=== PATIENT | female | born 1955 | race Caucasian/White ===

== ENCOUNTER → 2023-01-07 09:33 | Outpatient (CLI) | payer MEDICARE, MEDICAID, SELFPAY ==
--- NOTE | 2023-01-07 | CA_ITS ---
APPROVED REPORT EXAM: Comprehensive 2D, Doppler, and color-flow Echocardiogram Gaming Dealer: Sally Reyez, RT(R) Ht: 5 ft 3 in Wt: 190lbs BSA: 1.89 BP: 142/84 mmHg Indications: PSVT, memory lapse, amnesia, SOB 2D Dimensions LVOT 1.87 cm (M/F) 1.5-2.5 LVEF (Murray's) 63.90 % F: 54 - 74 LV Volume 62.00 mL F: 46 - 106 LV Volume Index 32.80 mL/m2 F: 29 - 61 M-Mode Dimensions RVDd 3.06 cm (0.9-2.6) LA Diam 3.43 cm (1.9-4.0) LVDd 3.86 cm (3.5-5.7) Ao Diam 2.38 cm (2.0-3.7) LVDs 2.58 cm (3.5-5.7) IVSd 0.85 cm (0.6-1.1) PWd 0.93 cm (0.6-1.1) EF (Teich) 62.50% FS 33.20% EDV (Teich) 64.30 mL ESV (Teich) 24.10 mL LV Diastology E Decel Time 250.00 (160-240 msec) E/A Ratio 0.88 MED E' 6.60 (< 7 cm/sec) E'/MED E' Ratio 12.76 (>14) LAT E' 7.30 (<10 cm/sec) E/LAT E' Ratio 11.53 (>14) Mitral Valve MV A Velocity 96.00 (40-130 cm/s) E/A Ratio 0.88 MV Decel. Time 250.00 (160-240 ms) Left Ventricle Left atrium is normal size, left ventricle is normal size, estimated ejection fraction 55% with no regional wall motion abnormality. Diastolic parameters are inconclusive. Right Ventricle Right atrium and right ventricle are mildly enlarged with normal contractility. Aortic Valve Aortic valve is minimally thickened and calcified without aortic stenosis aortic insufficiency. Mitral Valve Mitral valve is grossly normal, there is trace mitral regurgitation. Tricuspid Valve Tricuspid grossly normal, there is trace tricuspid regurgitation, tricuspid regurgitation jet plus is inadequate for calculation of the right ventricular systolic pressure. Pulmonic Valve Pulmonic valve is poorly visualized. Great Vessels Aortic root is normal size. Inferior vena cava is normal size with normal inspiratory collapse. Pericardium No significant pericardial effusion noted. Conclusion 1. Normal left ventricular size, estimated ejection fraction 55% with no regional wall motion abnormality, diastolic parameters are inconclusive. 2. Mildly enlarged right ventricle with normal contractility. 3. Trace mitral and tricuspid regurgitation. 4. No significant pericardial effusion noted. 5. Inferior vena cava is normal size with normal inspiratory collapse. Electronically signed by : Jasper Mao MD 01/08/2023 10:59:40
--- NOTE | 2023-01-07 | CA_ITS ---
FINAL REPORT TECHNIQUE: Real-time imaging was performed of the extracranial carotid arteries in transverse and longitudinal planes, with color duplex evaluation of blood flow velocity. Spectral analysis was performed. The cervical vertebral arteries were also examined. CLINICAL HISTORY: .near syncope, htn COMPARISON: None FINDINGS: NASCET technique is utilized for stenosis evaluation. Right carotid system (centimeters/second): CCA: 109 ICA: 88 ECA: 133 Vertebral artery: Antegrade ICA/CCA ratio: 1.0 Mild plaque is identified at the right carotid bulb. Left carotid system (centimeters/second): CCA: 109 ICA: 138 ECA: 165 Vertebral artery: Antegrade ICA/CCA ratio: 1.26 Mild plaque is identified at the proximal left carotid bulb. IMPRESSION: <50% right ICA stenosis. <50% left ICA stenosis. Reviewed, Interpreted and Dictated by Malathi Dubois MD Transcribed by Candida Barcenas Authenticated and [facility]
== END ==
PROVIDERS: PCP Internal Medicine; Visit Provider Internal Medicine
DX: G45.4 Transient global amnesia (principal); I47.1 Supraventricular tachycardia
CPT/HCPCS: 93225; 93226; 93306; 93880

== ENCOUNTER 2023-01-15 17:05 | Observation (INO) | payer MEDICARE, MEDICAID, SELFPAY ==
[2023-01-15] VITALS (9 sets, daily range): BP systolic 110–125; BP diastolic 57–85; PULSE 79–96; RESP 17–20; TEMP 36.4–36.6; O2SAT 96–100; BMI 32.0; BMI 31.1
--- NOTE | 2023-01-15 16:41 | PC.NURSE ---
CHRIS OVERTON at
--- NOTE | 2023-01-15 16:42 | CT_ITS ---
PROCEDURE INFORMATION: Exam: CT Head Without Contrast Exam date and time: 01/15/2023 4:47 PM Age: 67 years old Clinical indication: Stroke-like symptoms; Altered mental status/memory loss; Additional info: AMS TECHNIQUE: Imaging protocol: Computed tomography of the head without contrast. Radiation optimization: All CT scans at this facility use at least one of these dose optimization techniques: automated exposure control; mA and/or kV adjustment per patient size (includes targeted exams where dose is matched to clinical indication); or iterative reconstruction. Other technique: STROKE PROTOCOL was implemented. REPORTING DATA: Count of CT and Cardiac NM exams in prior 12 months: This patient has received [address] and 0 known cardiac nuclear medicine studies in the 12 months prior to the current study. COMPARISON: US CA CAROTID DUPLEX BI 01/07/2023 9:42 AM FINDINGS: Brain: Normal. No hemorrhage. Unremarkable white matter. No mass effect. Cerebral ventricles: No ventriculomegaly. Paranasal sinuses: Visualized sinuses are unremarkable. No fluid levels. Mastoid air cells: Visualized mastoid air cells are well aerated. Bones/joints: Unremarkable. No acute fracture. Soft tissues: Unremarkable. IMPRESSION: No acute intracranial abnormality. ASSESSMENT: ASPECTS ([facility]osi Stroke Program Early CT Score) is 10.
--- NOTE | 2023-01-15 16:43 | CT_ITS ---
PROCEDURE INFORMATION: Exam: CT Cervical Spine Without Contrast Exam date and time: 01/15/2023 4:50 PM Age: 67 years old Clinical indication: Weakness; Additional info: AMS. Fall TECHNIQUE: Imaging protocol: Computed tomography of the cervical spine without contrast. Radiation optimization: All CT scans at this facility use at least one of these dose optimization techniques: automated exposure control; mA and/or kV adjustment per patient size (includes targeted exams where dose is matched to clinical indication); or iterative reconstruction. REPORTING DATA: Count of CT and Cardiac NM exams in prior 12 months: This patient has received [address] and 0 known cardiac nuclear medicine studies in the 12 months prior to the current study. COMPARISON: US CA CAROTID DUPLEX BI 01/07/2023 9:42 AM FINDINGS: Bones/joints: No acute fracture. Normal alignment. Mild disc space narrowing at C3-C4, C4-C5 and C7-T1. Moderate to severe disc space narrowing at C5-C6 and C6-C7 with C6-C7 vacuum disc. Multilevel endplate osteophytes, largest at C5-C6 and C6-C7. No significant disc bulge or herniation. No severe spinal canal stenosis. Multilevel facet arthrosis. Mild left-sided bony foraminal stenosis at C3-C4. Mild right-sided bony foraminal stenosis at C4-C5. Mild bilateral bony foraminal stenosis at C5-C6. Moderate left-sided and mild right-sided bony foraminal stenosis at C6-C7. Lungs: Lung apices are normal. Soft tissues: Unremarkable. IMPRESSION: No acute findings.
--- NOTE | 2023-01-15 16:44 | PC.NURSE ---
Pt to CT via stretcher
--- NOTE | 2023-01-15 16:47 | PC.NURSE ---
called radiology @ 16:[address] scan
--- NOTE | 2023-01-15 16:54 | PC.NURSE ---
Tiffanie Saldana neighbor per [facility]
--- NOTE | 2023-01-15 16:59 | ECG_ITS ---
APPROVED REPORT Exam: Resting ECG HR:78 bpm ECG Measurements Heart Rate 78 AXES WV 188 P 59 QRSd 87 QRS 38 QT 354 T 36 QTc 387 Conclusion SINUS RHYTHM LOW QRS VOLTAGE IN PRECORDIAL LEADS [QRS DEFLECTION < 1.0 mV IN CHEST LEADS] BORDERLINE ECG UNCONFIRMED REPORT Electronically signed by : Blake Hatch MD 01/16/2023 20:01:09
--- NOTE | 2023-01-15 17:01 | XR_ITS ---
PROCEDURE INFORMATION: Exam: XR Chest Exam date and time: 01/15/2023 5:22 PM Age: 67 years old Clinical indication: Other: AMS TECHNIQUE: Imaging protocol: Radiologic exam of the chest. Views: 1 view. COMPARISON: CT CERVICAL SPINE WO CON 01/15/2023 4:50 PM FINDINGS: Lungs: Unremarkable. No consolidation. Pleural spaces: Unremarkable. No pleural effusion. No pneumothorax. Heart/Mediastinum: Unremarkable. No cardiomegaly. Bones/joints: Unremarkable. IMPRESSION: No acute findings.
--- NOTE | 2023-01-15 17:03 | PC.NURSE ---
pt returned from CT via stretcher. UA and EKG obtained.
[2023-01-15 17:04] LABS: Microscopic, Urine URINE MICROSCOPIC (MICROSCOPIC)
--- NOTE | 2023-01-15 17:04 | HMH.EDGENADL ---
Discharge Plan Disposition Patient Disposition: Admitted as Observation Condition: Fair Clinical Impressions Clinical Impression: Expressive aphasia Discharge ED Provider: Francis De La Fuente Adult HPI General Chief complaint: Altered Mental Status Stated complaint: AMS Time Seen by Provider: 01/15/23 16:40 Mode of Arrival: EMS Source of Information: Patient and EMS Limitations: No Limitations Description of Symptoms (Recalled from ER Triage Doc. by RN): per EMS they received a call from the patient's neighbor stating she received a call from the patient stating to call the ambulance, she had fallen out of bed and hit her head, neighbor states she received call around 3:30pm but hasn't seen her or spoken with her in a week, neighbor states she has noticed increased confusion since October but this is defiantly out of her norm, pt lives at home alone, pt able to answer some questions appropriately but unable to give us any medical history or if she is allergic to anything, states her head hurts, no deficits noted History of Present Illness HPI narrative: The patient is brought in by ambulance. Limited history available. History is obtained from nursing staff in the emergency department who received report from ambulance. Reportedly the patient spoke with her neighbor by phone and told her that she had fallen out of bed. The patient currently just complains of headache, she thinks she might of fallen out of bed. She is having difficulty with speech and is unable to give any further history herself. Per nursing staff, the patient's neighbor reported increased confusion since late last year, but states she is much worse now. Patient lives alone. Neighbor does not see her often, reportedly last seen normal a week ago. Related Data Home Medications Medication Instructions Recorded Confirmed Unobtainable 01/15/23 01/15/23 Allergies Allergy/AdvReac Type Severity Reaction Status Date / Time Unable to Assess Allergy Verified 01/15/23 16:55 [facility] Disclaimer: The information contained in this section may have been updated after the patient was seen, as this information can be updated by other users. Social History Smoking Status: Unknown if ever smoked ROS Obtained: Yes unobtainable due to mental status Physical Exam General General appearance: alert and anxious Comment: Follows commands, answers a few simple questions. She tells me her name. She is word searching and cannot answer where she is or time/date. Head Head exam: atraumatic and normocephalic Eye Eye exam: Present normal appearance, PERRL and EOMI ENT ENT exam: Present mucous membranes moist Neck Neck exam: Present normal inspection, full ROM and trachea midline Chest Chest inspection: Present normal inspection and symmetric chest wall rise Respiratory Respiratory exam: Present normal lung sounds bilaterally; Absent respiratory distress Cardiovascular Cardiovascular exam: Present regular rate and normal rhythm Abdominal Exam Abdominal exam: Present soft; Absent distention, tenderness or guarding Extremities Exam Extremities exam: Present normal inspection; Absent edema Neurological Exam Neurological exam: Present alert and CN II-XII intact; Absent motor sensory deficit Expanded Neurological Exam Comment: Follows commands, moves all 4 extremities. No drift of any extremities. No facial asymmetry. Psychiatric Psychiatric exam: Present anxious Skin Skin exam: Present warm and dry Medical Decision Making Sami Inquiry Pt receiving controlled substance: Yes Sami was queried for this patient: Yes Risks and benefits of using a controlled substance: were not discussed with pt by me Vital Signs: 01/15/23 16:44 01/15/23 16:53 01/15/23 17:00 Temperature 97.6 F Temperature Source Oral Pulse Rate 80 79 Pulse Rate [Right Radial] 82 Respiratory Rate 20 Blood Pressure Blood Pressure [Right Arm] 1
[2023-01-15 17:12] LABS: Basophils # 0.1 K/mm3 (0-0.2); Basophils % 1.5 % (0.1-2.0); Eosinophils # 0.2 K/mm3 (0.0-0.4); Eosinophils % 2.4 % (0.1-12.0); Hematocrit 42.7 % (37.0-47.0); Hemoglobin 14.3 g/dL (12.2-16.2); Lymphocytes # 2.8 K/mm3 (0.7-4.5); Lymphocytes % 35.9 % (10-50); Mean Corpuscular HGB Conc 33.4 g/dL (31.8-35.4); Mean Corpuscular Hemoglobin 30.5 pg (27.0-31.2); Mean Corpuscular Volume 91.4 fl (81-99); Mean Platelet Volume 7.9 fl (7.4-10.4); Monocytes # 0.5 K/mm3 (0.1-1.0); Monocytes % 6.2 % (1.7-9.3); Neutrophils # 4.2 K/mm3 (1.8-7.8); Neutrophils % 53.9 % (37.0-80.0); Platelet Count 381 K/mm3 (142-424); Red Blood Count 4.67 M/mm3 (4.20-5.40); Red Cell Distribution Width 13.4 % (11.5-17.5); White Blood Count 7.7 K/mm3 (4.8-10.8)
[2023-01-15 17:15] LABS: Appearance,Urine CLEAR (Clear); Bilirubin,Urine Negative (Negative); Blood, Urine Negative (Negative); Color,Urine YELLOW (Yellow); Glucose,Urine (UA) Negative (Negative); Ketones,Urine Negative (Negative); Leukocyte Esterase,Urine 1+ (Negative); Nitrate,Urine Negative (Negative); Protein,Urine Negative (Negative); Specific Gravity, Urine 1.015 (1.005-1.030); Urobilinogen,Urine 0.2 EU/dl (0.2)
[2023-01-15 17:19] LABS: Coronavirus 19, PCR Not Detected (NotDetected); Influenza A, PCR Not Detected (NotDetected); Influenza B, PCR Not Detected (NotDetected)
[2023-01-15 17:19] LABS: Alanine Aminotransferase 29 U/L (12-78); Albumin Level 4.7 g/dl (3.5-5.0); Albumin/Globulin Ratio 1.4 (1.1-1.8); Alkaline Phosphatase 102 U/L (38-126); Anion Gap 8.5 mEq/L (5-15); Aspartate Amino Transferase 37 U/L (14-36); Bilirubin,Total 0.8 mg/dl (0.2-1.3); Blood Urea Nitrogen 24 mg/dl (7-17); Calcium 10.1 mg/dl (8.4-10.2); Carbon Dioxide 26 mmol/L (22.0-30.0); Chloride 108 mmol/L (98-107); Creatinine Clearance Estimated 69 mL/min (50-200); Estimated Glomerular Filt Rate 63 ml/min (>60); GFR (African American) 76 ML/MIN (>60); Globulin 3.4 g/dL (1.3-3.2); Glucose 99 mg/dl (74-100); Potassium 3.5 mmoL/L (3.5-5.1); Sodium 139 mmol/L (136-145); Total Protein,Serum 8.1 g/dl (6.3-8.2)
[2023-01-15 17:21] LABS: Ethyl Alcohol < 10 mg/dl (0-10)
[2023-01-15 17:33] LABS: Amphetamine/Metha Screen,Urine Negative ng/ml (<1000); Benzodiazepines Screen,Urine Positive ng/ml (<200)
[2023-01-15 17:34] LABS: Barbiturates Screen,Urine Negative ng/ml (<200)
[2023-01-15 17:36] LABS: Cannabinoid Screen,Urine Negative ng/ml (<50); Troponin I < 0.01 ng/ml (0.00-0.034)
[2023-01-15 17:37] LABS: Cocaine Screen,Urine Negative ng/ml (<300); Methadone Screen,Urine Negative ng/ml (<300); T4 (Thyroxine) 8.2 ug/dl (5.53-11.0)
[2023-01-15 17:38] LABS: Opiate Screen,Urine Negative ng/ml (<300)
[2023-01-15 17:39] LABS: Phencyclidine Screen,Urine Negative ng/ml (<25)
[2023-01-15 17:51] LABS: Thyroid Stimulating Hormone 5.91 uIU/mL (0.465-4.68)
[2023-01-15 18:00] LABS: Free Thyroxine Index 2.6 ug/dL (5.93-13.13); Triiodothryronine (T3) Uptake 32 % (23.5-40.5)
--- NOTE | 2023-01-15 18:08 | PC.NURSE ---
PROVIDED PT WITH WARM BLANKET. BED ALRAM IN PLACE. BED IN LOWEST POSITION. CALL LIGHT WITHIN REACH.
[2023-01-15 18:19] LABS: Bacteria,Urine Trace /lpf
[2023-01-15 18:20] LABS: Ammonia 10 umol/L (9-30)
--- NOTE | 2023-01-15 18:50 | PC.NURSE ---
ER AT BEDSIDE
--- NOTE | 2023-01-15 19:11 | PC.NURSE ---
GAVE REPORT TO INSIDE SALES PERSON RN.
--- NOTE | 2023-01-15 19:48 | PC.NURSE ---
speaking with hospitalist for admission
--- NOTE | 2023-01-15 19:54 | PC.NURSE ---
Called underground supervisor for bed assignment
--- NOTE | 2023-01-15 20:00 | PC.NURSE ---
Pt assigned to room 207 at this time
--- NOTE | 2023-01-15 20:36 | PC.NURSE ---
called pt's next of Kin, Olivia Perera [phone], however unable to leave a message
--- NOTE | 2023-01-15 21:08 | EXP.HP ---
History of Present Illness *Admission Date: 01/15/23 *Reason for visit:: Confusion *History of present illness: Ms. Lovett is a 67-year-old female who presented to [facility] due to a call from a neighbor that reported that the patient stated that she had fallen and hit her head. The neighbor reports that the patient lives alone and has appeared more confused since 09/2022. Per neighbor the patient has a history of Schizophrenia. In the ER there was a concern for expressive aphasia. The patient underwent a CT of the head that showed no acute intracranial abnormalities and CT of the cervical spine that showed no acute fractures or dislocations. US was positive for Benzodiazepines. The patient's medication history was checked and she was last prescribed Alprazolam 0.25 mg #100 in 11/2022. CBC and CMP were unremarkable. On exam the patient is able to repeat sentences with ease, but when asked orientation questioning she is unable to recall the town, states the year is 2021, but knows her name and . The patient will be admitted with initial impression: Expressive Aphasia. There is concern that the patient lives alone. Respiratory Therapist will be consulted. Speech and PT will be consulted. Further imaging and testing will be ordered on patient's clinical course. [facility] Disclaimer: The information contained in this section may have been updated after the patient was seen, as this information can be updated by other users. Medical History Schizophrenia Social History Smoking Status: Unknown if ever smoked alcohol intake: never current occupational status: unemployed Travel in the last 8 weeks: Inside the [place] Review of Systems Review of Systems Review of systems:: unable to obtain Meds Home Medications and Allergies Home Medications Medication Instructions Recorded Confirmed Type alprazolam 0.25 mg tablet 0.25 mg PO Q6HP PRN Anxiety 01/15/23 01/16/23 History diltiazem HCl 120 mg capsule,24 120 mg PO DAILY Hypertension 01/15/23 01/15/23 History hr,extended release doxepin 50 mg capsule 50 mg PO HS PRN sleep 01/15/23 01/15/23 History duloxetine 30 mg capsule,delayed 30 mg PO DAILY Depression 01/15/23 01/15/23 History release levothyroxine 75 mcg tablet 75 mcg PO DAILYDM hypothyroid 01/15/23 01/16/23 History montelukast 10 mg tablet 10 mg PO DAILY Allergy symptoms 01/15/23 01/15/23 History pantoprazole 20 mg tablet,delayed 20 mg PO DAILY GERD 01/15/23 01/15/23 History release New Prescriptions to Start Prescriptions: Allergies Allergy/AdvReac Type Severity Reaction Status Date / Time Unable to Assess Allergy Verified 01/15/23 16:55 Exam Data for Last 24 hours Vital signs and Labs for Last 24 Hours: Temp Pulse Resp BP Pulse Ox 98 F 90 20 124/80 100 01/15/23 21:05 01/15/23 21:05 01/15/23 21:05 01/15/23 21:05 01/15/23 20:44 Laboratory Results - last 24 hr 01/15/23 16:35: WBC 7.7, RBC 4.67, Hgb 14.3, Hct 42.7, MCV 91.4, MCH 30.5, MCHC 33.4, RDW 13.4, Plt Count 381, MPV 7.9, Neut % (Auto) 53.9, Lymph % (Auto) 35.9, [place] % (Auto) 6.2, Eos % (Auto) 2.4, Baso % (Auto) 1.5, Neut # (Auto) 4.2, Lymph # (Auto) 2.8, [place] # (Auto) 0.5, Eos # (Auto) 0.2, Baso # (Auto) 0.1 01/15/23 16:35: Sodium 139, Potassium 3.5, Chloride 108 H, Carbon Dioxide 26, Anion Gap 8.5, BUN 24 H, Creatinine 0.90, Estimated Creat Clear 69, Estimated GFR 63, Est GFR ( Amer) 76, Glucose 99, Calcium 10.1, Total Bilirubin 0.8, AST 37 H, ALT 29, Alkaline Phosphatase 102, Troponin I < 0.01, Total Protein 8.1, Albumin 4.7, Globulin 3.4 H, Albumin/Globulin Ratio 1.4 01/15/23 16:35: Lactate 2.0 01/15/23 16:35: Urine Opiates Screen Negative, Urine Methadone Screen Negative, Ur Barbituates Screen Negative, Ur Phencyclidine Scrn Negative, Ur Amphetamines Screen Negative, U Be
--- NOTE | 2023-01-15 21:11 | PC.NURSE ---
Unable to obtain admission hx/home meds d/t cognitive status. pt is confused. no family available. attempted to call heidy, friend of patient and no answer. unable to leave a message.
--- NOTE | 2023-01-16 | PC.NURSE ---
spoke with lavaro regarding pateint having herrmann, stated she would place orders to leave it in tonight and dc tomorrow where patient had a fall
--- NOTE | 2023-01-16 03:44 | PC.NURSE ---
unable to fill out health related social needs tool based off patient's mentation. will pass on to dayshift nurse.
[2023-01-16 04:00] VITALS: BP 110/65; PULSE 92; RESP 16; TEMP 36.9; O2SAT 95; BMI 31.8
--- NOTE | 2023-01-16 05:37 | PC.NURSE ---
a&o to self, birthday, situation. pt stated shes at the hospital, just doesn't know which one. mentation improved since arriving onto the floor. patient slept through the night. woke up with c/o headache. prn tylenol given. herrmann to bedside draining clear, yellow urine. fall risk. bed alarm on.
[2023-01-16 08:00] VITALS: BP 114/50; PULSE 120; RESP 18; TEMP 36.7; O2SAT 94
--- NOTE | 2023-01-16 08:00 | CT_ITS ---
PROCEDURE INFORMATION: Exam: CTA Head With Contrast, Arteriography Exam date and time: 01/16/2023 10:50 AM Age: 67 years old Clinical indication: Speech disturbance; Aphasia; Additional info: Expressive aphasia TECHNIQUE: Imaging protocol: Computed tomographic angiography of the head with contrast. Exam focused on the arteries. 3D rendering (Not supervised by radiologist): MIP and/or 3D reconstructed images were created by the technologist. Radiation optimization: All CT scans at this facility use at least one of these dose optimization techniques: automated exposure control; mA and/or kV adjustment per patient size (includes targeted exams where dose is matched to clinical indication); or iterative reconstruction. Contrast material: ISOVUE; Contrast volume: 100 ml; Contrast route: INTRAVENOUS (IV); REPORTING DATA: Count of CT and Cardiac NM exams in prior 12 months: This patient has received 2 known CTs and 0 known cardiac nuclear medicine studies in the 12 months prior to the current study. COMPARISON: CT HEAD/BRAIN WO CON 01/15/2023 4:47 PM FINDINGS: ANTERIOR CIRCULATION: Right internal carotid artery: Intracranial segment is patent with no significant stenosis. No aneurysm. Right middle cerebral artery: No occlusion or significant stenosis. No aneurysm. Right anterior cerebral artery: No occlusion or significant stenosis. No aneurysm. Left internal carotid artery: Intracranial segment is patent with no significant stenosis. No aneurysm. Left middle cerebral artery: No occlusion or significant stenosis. No aneurysm. Left anterior cerebral artery: No occlusion or significant stenosis. No aneurysm. 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 No occlusion. No aneurysm. Left vertebral artery: No occlusion or significant stenosis. No aneurysm. Basilar artery: No occlusion or significant stenosis. No aneurysm. Right posterior cerebral artery: No occlusion or significant stenosis. No aneurysm. Left posterior cerebral artery: No occlusion or significant stenosis. No aneurysm. Brain: No definite mass, mass effect, or midline shift. Cerebral ventricles: No ventriculomegaly. Bones/joints: Unremarkable. No acute fracture. Soft tissues: Unremarkable. IMPRESSION: No large vessel stenosis or occlusion.
--- NOTE | 2023-01-16 08:34 | HMH.PHAINT1 ---
Pharmacy Intervention Comments: MEDICATION RECONCILIATION COMPLETE USING EXTERNAL PHARMACY FILL HISTORY AND RADHA REPORT.
--- NOTE | 2023-01-16 08:56 | HMH.ITSTN ---
spoke to nurse about CT angio head- pt on room air she is confused but able to follow commands -- advised will be there at 10 to get for Routine head CT
--- NOTE | 2023-01-16 10:55 | HMH.ITSTN ---
called for status of patient was told can come by wheelchair with assistance-- when Yanet went to get the patient she was trying to get up and go to the bathroom, nurse was upset that patient stood. the mode of transportation says ambulatory and should have been ok to stand patient and get into wheelchair. brought patient to CT in wheelchair and with assistance patient was able to move to table and back to wheelchair
--- NOTE | 2023-01-16 13:12 | HMH.PTEV ---
Physical Therapy Evaluation Rehab PT IP Evaluation Start: 01/15/23 21:27 Freq: ONCE Status: Active Protocol: Document 01/16/23 12:55 PDESEROUX (Rec: 01/16/23 13:12 PDESEROUX [id number]) Subjective/History History History Pt. is a 67 year old female whom presents to [facility] 2nd floor Inpatient on for confusion after having a fall and hitting her head. Pt. is unable to recall reason for recent fall, but does vocalize having an increase in knee P! w/ prolonged ambulation that leads to stumbling. Pt. reports she needs to have a S/P TKA secondary to the P!, but her Surgeon was diagnosed w/ COVID and is planning on retiring. Pt. reports she lives alone in her trailer w/ a step to get inside/outside. Pt. reports she has been ambulating w/ a SPC for months prior to recent fall. Pt. unable to report any previous falls, but continues to vocalizes stumbling while on her feet. Pt. 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 PMH includes hx. of Schizoprhenia. Subjective Subjective Pt. presents to [facility] 2nd floor Inpatient for a fall where she had hit her head. Pt. was awake, alone, and in bed upon entry into pt.'s hospital room after a vocalized verbal consent. Pt. was left in hospital bed w/ call light in reach. Rehab PT IP Eval Objective Appearance Patient Behavior Appropriate,Cooperative, Anxious,Confused Patient Orientation Place,Name,Birthday Difficulty following instructions none Speech Pattern Clear,Appropriate,Delayed, Aphasic,Difficulty Finding Words Ambulation Patient A
--- NOTE | 2023-01-16 13:50 | EXP.ACUTE.PN ---
Subjective *Date: 01/16/23 *Time: 13:53 Interval history: Stable on room air overnight. Tolerating p.o. intake without nausea or vomiting. Able to answer questions appropriately without difficulty finding words. Denies nausea, chest pain, shortness of breath, vomiting. Thinks she fell at home. 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 Very pleasant and interactive. Medical Exam Vital signs and Labs for Last 24 Hours: Vital Signs Temp Pulse Pulse Resp BP BP BP 01/16/23 08:00 98.0 F 120 H 18 114/50 L 01/16/23 04:00 98.5 F 92 H 16 110/65 01/15/23 21:05 98 F 90 20 124/80 01/15/23 20:44 97.5 F L 89 17 124/82 01/15/23 20:09 95 H 110/57 L 01/15/23 18:00 96 H 01/15/23 17:30 86 01/15/23 17:15 79 01/15/23 17:00 79 01/15/23 16:53 80 01/15/23 16:44 97.6 F 82 20 125/85 Pulse Ox 01/16/23 08:00 94 L 01/16/23 04:00 95 01/15/23 21:05 01/15/23 20:44 100 01/15/23 20:09 98 01/15/23 18:00 96 01/15/23 17:30 97 01/15/23 17:15 99 01/15/23 17:00 97 01/15/23 16:53 97 01/15/23 16:44 99 Intake and Output 01/15/23 01/16/23 01/16/23 23:59 07:59 15:59 Intake Total 480 / 480 Output Total 400 / 800 500 / 1250 750 / 1250 Balance -400 / -800 -500 / -770 -270 / -770 Intake: Intake, Oral Amount 480 / 480 Output: Output, Urine Amount 400 / 400 100 / 850 750 / 850 Output, Urine Amount (Catheter) 400 / 400 Santiago 400 / 400 Other: Number of Unmeasured Voids 0 0 0 Weight 76.742 kg 78.471 kg Patient Weight 01/16/23 23:59 Weight 78.471 kg Laboratory Results - last 24 hr 01/15/23 16:35: WBC 7.7, RBC 4.67, Hgb 14.3, Hct 42.7, MCV 91.4, MCH 30.5, MCHC 33.4, RDW 13.4, Plt Count 381, MPV 7.9, Neut % (Auto) 53.9, Lymph % (Auto) 35.9, Sac % (Auto) 6.2, Eos % (Auto) 2.4, Baso % (Auto) 1.5, Neut # (Auto) 4.2, Lymph # (Auto) 2.8, Sac # (Auto) 0.5, Eos # (Auto) 0.2, Baso # (Auto) 0.1 01/15/23 16:35: Sodium 139, Potassium 3.5, Chloride 108 H, Carbon Dioxide 26, Anion Gap 8.5, BUN 24 H, Creatinine 0.90, Estimated Creat Clear 69, Estimated GFR 63, Est GFR ( Amer) 76, Glucose 99, Calcium 10.1, Total Bilirubin 0.8, AST 37 H, ALT 29, Alkaline Phosphatase 102, Troponin I < 0.01, Total Protein 8.1, Albumin 4.7, Globulin 3.4 H, Albumin/Globulin Ratio 1.4 01/15/23 16:35: Lactate 2.0 01/15/23 16:35: Urine Opiates Screen Negative, Urine Methadone Screen Negative, Ur Barbituates Screen Negative, Ur Phencyclidine Scrn Negative, Ur Amphetamines Screen Negative, U Benzodiazepines Scrn Positive H, Urine Cocaine Screen Negative, U Marijuana (THC) Screen Negative 01/15/23 16:35: Plasma/Serum Alcohol < 10 01/15/23 16:35: TSH 5.91 H, Free T4 Index 2.6 L, Thyroxine (T4) 8.2, T3 Uptake 32 01/15/23 16:49: Urine Color Yellow, Urine Appearance Clear, Urine pH 8.0, Ur Specific Turner 1.015, Urine Protein Negative, Urine Glucose (UA) Negative, Urine Ketones Negative, Urine Blood Negative, Urine Nitrate Negative, Urine Bilirubin Negative, Urine Urobilinogen 0.2, Ur Leukocyte Esterase 1+ A, Urine RBC None, Urine WBC 3-5, Ur Squamous Epith Cells 3-5, Urine Bacteria Trace 01/15/23 17:12: SARS-CoV-2 (PCR) Not detected, Influenza A Untype (PCR) Not detected, Influenza Type B (PCR) Not detected 01/15/23 18:00: Ammonia 10 I & O for Labs for Last 24 Hours: Intake & Output 01/13/23 01/14/23 01/15/23 01/16/23 23:59 23:59 23:59 23:59 Intake Total 480 / 480 Output Total 400 / 800 1250 / 1250 Balance -400 / -800 -770 / -770 Weight 76.742 kg 78.471 kg Constitutional: Present no acute distress, obese and chronically ill appearing Head: Present atraumatic and normocephalic ENT: Present normal exam Neck: Present normal inspection Respiratory: Present CTA bilaterally and normal respiratory effort; Absent accessory muscle use, rhonchi, wheezes or crackles Cardiac: Present
[2023-01-16 16:00] VITALS: BP 113/58; PULSE 95; RESP 20; TEMP 36.6; O2SAT 95
--- NOTE | 2023-01-16 17:27 | PC.NURSE ---
VS stable, patient remained on room air. Patient confused but able to find words better during shift. No slurred speech or one sided weakness noted. Patient unsteady when walking to bathroom, bedside commode utilized. Santiago catheter removed and patient able to void with no difficulty after. Lung sounds clear on ascultation. Patient alert but only oriented to person and birthdate. No other changes noted.
[2023-01-16 20:00] VITALS: BP 108/65; PULSE 84; RESP 16; TEMP 37.2; O2SAT 96
[2023-01-17 04:00] VITALS: BP 116/65; PULSE 58; RESP 16; TEMP 36.9; O2SAT 98; BMI 32.7
--- NOTE | 2023-01-17 07:20 | EXP.DC.SUM ---
General Admission date:: 01/15/23 Discharge date: 01/17/23 HPI HPI HPI: Ms. Lovett is a 67-year-old female who presented to [facility] due to a call from a neighbor that reported that the patient stated that she had fallen and hit her head. The neighbor reports that the patient lives alone and has appeared more confused since 09/2022. Per neighbor the patient has a history of Schizophrenia. In the ER there was a concern for expressive aphasia. The patient underwent a CT of the head that showed no acute intracranial abnormalities and CT of the cervical spine that showed no acute fractures or dislocations. US was positive for Benzodiazepines. The patient's medication history was checked and she was last prescribed Alprazolam 0.25 mg #100 in 11/2022. CBC and CMP were unremarkable. On exam the patient is able to repeat sentences with ease, but when asked orientation questioning she is unable to recall the town, states the year is 2021, but knows her name and . The patient will be admitted with initial impression: Expressive Aphasia. There is concern that the patient lives alone. Manager Wellness will be consulted. Speech and PT will be consulted. Further imaging and testing will be ordered on patient's clinical course. Hospital Course Hospital Course Hospital Course: 67-year-old female with unknown past medical history except reported Schizophrenia presents to the ER due to concerns of neighbor reporting patient acting more confused since 09/2022 and fall - Expressive Aphasia , resolved - weakness CT of the head performed in the ER shows no acute intracranial findings, CTA obtained showing no occlusions. Patient's aphasia resolved rapidly. Had no focal neurologic symptoms. Does have weakness but this appears more longstanding on evaluation. Physical therapy feels she is at her baseline but would benefit from a walker for balance. She has used a cane for many years. Will be discharged home with walker. Would benefit from home health for in-home PT and OT. Consult placed. Patient has had no difficulty communicating effectively during her admission. Answers questions appropriately. Is oriented to person place and time. Low concern for stroke or TIA at this time however we have initiated 81 mg aspirin daily. Patient has been under a lot of stress since losing her job and has some awareness and concern for forgetfulness, misplacing things at home, that she would like to discuss further with her PCP. Of note, speech therapy also evaluated the patient. She was noted to have no deficits, difficulties with speech, difficulty swallowing or eating. No restrictions at this time. Medically stable for discharge home with recommended close follow-up with her PCP. Case management to assist with referral to home health tomorrow on first business day after discharge over the weekend. - Schizophrenia, POA Longstanding, flat affect, appropriate thinking. Continue Cymbalta and Xanax per home regimen. Appears stable, complicates all aspects of her care however. - Social Isolation: Case management consult placed, will assist with home health referral on Wednesday. - Hypothyroidism: TSH 5.91, Free T4 2.6.? Not controlled at goal, is likely an underlying factor in her conditions above. Levothyroxine increased to 100 mcg daily. Stable for discharge home. Friend will be providing her ride today. Nursing confirmed. Follow-up with PCP within the next 2 weeks. Exam Data for Last 24 hours Vital signs and Labs for Last 24 Hours: Temp Pulse Resp BP Pulse Ox 98.5 F 58 L 16 116/65 98 01/17/23 04:00 01/17/23 04:00 01/17/23 04:00 01/17/23 04:00 01/17/23 04:00 I & O for Last 24 hours: Intake & Output 01/14/23 01/15/23 01/16/23 01/17/23 23:59 23:59 23:59 23:59 Intake Total 680 / 680 Output Total 400 / 800 1550 / 1550 0 / 0 Balance -400 / -800 -870 / -870 0 / 0 Weight 76.742 kg 78.471 kg 80.694 kg [place]
[2023-01-17 07:26] LABS: Chloride 105 mmol/L (98-107); Potassium 3.7 mmoL/L (3.5-5.1); Sodium 137 mmol/L (136-145)
[2023-01-17 07:28] LABS: Basophils # 0.1 K/mm3 (0-0.2); Basophils % 1.4 % (0.1-2.0); Eosinophils # 0.2 K/mm3 (0.0-0.4); Eosinophils % 3.3 % (0.1-12.0); Mean Corpuscular HGB Conc 32.6 g/dL (31.8-35.4); Mean Corpuscular Hemoglobin 30.4 pg (27.0-31.2); Mean Corpuscular Volume 93.3 fl (81-99); Mean Platelet Volume 7.9 fl (7.4-10.4); Monocytes # 0.5 K/mm3 (0.1-1.0); Monocytes % 7.5 % (1.7-9.3); Neutrophils # 3.3 K/mm3 (1.8-7.8); Neutrophils % 45.8 % (37.0-80.0); Platelet Count 338 K/mm3 (142-424); Red Blood Count 4.28 M/mm3 (4.20-5.40); Red Cell Distribution Width 13.5 % (11.5-17.5); White Blood Count 7.1 K/mm3 (4.8-10.8)
[2023-01-17 07:29] LABS: Alanine Aminotransferase 25 U/L (12-78); Albumin/Globulin Ratio 1.4 (1.1-1.8); Alkaline Phosphatase 92 U/L (38-126); Anion Gap 10.7 mEq/L (5-15); Aspartate Amino Transferase 30 U/L (14-36); Bilirubin,Total 0.3 mg/dl (0.2-1.3); Blood Urea Nitrogen 24 mg/dl (7-17); Calcium 8.8 mg/dl (8.4-10.2); Carbon Dioxide 25 mmol/L (22.0-30.0); Creatinine Clearance Estimated 70 mL/min (50-200); Estimated Glomerular Filt Rate 72 ml/min (>60); GFR (African American) 87 ML/MIN (>60); Globulin 2.8 g/dL (1.3-3.2); Glucose 147 mg/dl (74-100); Total Protein,Serum 6.8 g/dl (6.3-8.2)
[2023-01-17 07:30] LABS: Magnesium 2.2 mg/dl (1.6-2.3)
[2023-01-17 07:46] VITALS: BP 107/74; PULSE 91; RESP 17; TEMP 36.6; O2SAT 95
--- NOTE | 2023-01-17 08:41 | HMH.SLAPHASI ---
Speech & Language Evaluation Speech/Language Aphasia Evaluation Start: 01/17/23 08:19 Freq: once Status: Complete Protocol: Document 01/17/23 08:33 VINCENT (Rec: 01/17/23 08:41 VINCENT [id number]) Aphasia Assessment/Goals/Plan Assessment Date of Evaluation: 01/17/23 Evaluation Type Initial Certification Assessment/Problems Pt assessed at the bedside following concerns for expressive aphasia per MD order. Does Patient Qualify for Service Yes Qualify/Failure Comment Based on assessment results, pt expressive language is WFL and skilled speech therapy services are not warranted at this time. Plan Pt/Guardian verbally ack understanding Yes of dx/prognosis/goals G -code Required No Education Instructions provided Discussed memory strategies and assessment results with pt and nursing who expressed understanding. 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 Lovett is a 67-year-old female who presented to [facility] due to a call from a neighbor that reported that the patient stated that she had fallen and hit her head. The neighbor reports that the patient lives alone and has appeared more confused since 09/2022. Per neighbor the patient has a history of Schizophrenia. In the ER there was a concern for expressive aphasia. The patient underwent a CT of the head that showed no acute intracranial abnormalities and CT of the cervical spine that showed no acute fractures or dislocations. Pt/Caregiver Concerns Pt had no concerns. Rehab Services Assessed Speech therapy Is this evaluation r/t stroke? No Aphasia Evaluations Communication Speech Intelligibility Pt was 100% intelligible
--- NOTE | 2023-01-18 07:24 | SW/DCPLANNER ---
Addendum entered by Winsome Alcantar 01/18/23 07:55: Abdiel christine/ Tiffanie stated that services will start for this patient this week. Original Note: Patient information/order will be faxed to [facility] this AM.
--- NOTE | 2023-01-18 13:33 | CARE MANAGER ---
Attempted post-discharge phone interview, no answer.
--- NOTE | 2023-01-19 11:45 | CARE MANAGER ---
Called and spoke with patient regarding recent discharge. Patient stated that she is taking medication that was prescribed at discharge, and plans to call Dr. Pandya today to schedule f/u appt. No concerns or complaints at time of call.
== END 2023-01-17 12:49 | disposition home health service (06) ==
LOC: ER 20:02 → 2ND 20:04
PROVIDERS: Admitting Provider Internal Medicine Adolescent Medicine; Emergency Provider Emergency Medicine; PCP Internal Medicine; Visit Provider Internal Medicine Adolescent Medicine
DX: R47.01 Aphasia (principal); Z60.2 Problems related to living alone; F20.9 Schizophrenia, unspecified; E03.9 Hypothyroidism, unspecified; R53.1 Weakness; E66.09 Other obesity due to excess calories; Z68.31 Body mass index [BMI] 31.0-31.9, adult; Z79.899 Other long term (current) drug therapy; R51.9 Headache, unspecified; W06.XXXA Fall from bed, initial encounter; Y92.013 Bedroom of single-family (private) house as the place of occurrence of the external cause; Z20.822 Contact with and (suspected) exposure to COVID-19
CPT/HCPCS: G0378; 36415; 70450; 70496; 71045; 72125; 80053; 80305; 81001; 82140; 83605; 83735; 84436; 84443; 84479; 84484; 85025; 87040; 87086; 87088; 87186; 92523; 93005; 97161; 99285; C9803; Q9967; U0003; U0005

== ENCOUNTER → 2023-01-29 12:40 | Outpatient (CLI) | payer MEDICARE, MEDICAID, SELFPAY | PROVIDERS: PCP Internal Medicine; Visit Provider Internal Medicine | DX: R41.3 Other amnesia (principal) | CPT/HCPCS: 95816 ==

== ENCOUNTER → 2023-03-22 11:03 | Outpatient (CLI) | payer MEDICARE, MEDICAID, SELFPAY ==
[2023-03-22 12:22] LABS: Chloride 102 mmol/L (98-107)
[2023-03-22 12:23] LABS: Potassium 5.4 mmoL/L (3.5-5.1); Sodium 140 mmol/L (136-145)
[2023-03-22 12:25] LABS: Blood Urea Nitrogen 27 mg/dl (7-17); Erythrocyte Sedimentation Rate 76 mm/hr (0-30); Estimated Glomerular Filt Rate 63 ml/min (>60); GFR (African American) 76 ML/MIN (>60)
[2023-03-22 12:26] LABS: Anion Gap 12.4 mEq/L (5-15); Calcium 10.2 mg/dl (8.4-10.2); Carbon Dioxide 31 mmol/L (22.0-30.0); Glucose 94 mg/dl (74-100)
--- NOTE | 2023-03-22 12:51 | MR_ITS ---
FINAL REPORT CLINICAL HISTORY: episodic confusion, history of breast cancer. FINDINGS: Multiplanar MR imaging of the brain was performed without and with contrast. There are tiny scattered foci of abnormal signal in the deep white matter which are nonspecific. There is no evidence of intracranial hemorrhage or mass. No abnormal extra-axial fluid collection is seen. The ventricular size is within normal limits. There is no evidence of shift of the midline structures. The posterior fossa and brainstem have an unremarkable appearance. No area of abnormal restricted diffusion is identified. No abnormal contrast enhancement is seen. Normal major vessel vascular flow voids are noted. IMPRESSION: No acute intracranial abnormality and no abnormal contrast enhancement. Minimal changes of chronic microvascular ischemia. Reviewed, Interpreted and Dictated by Michael Hebert MD Transcribed by Megan Orellana Authenticated and [facility]
[2023-03-22 13:12] LABS: Vitamin B12 493 pg/mL (239-931)
[2023-03-22 13:31] LABS: Folate 7.08 ng/mL
[2023-04-02 20:44] LABS: Antinuclear Antibodies (ANA) Negative
== END ==
PROVIDERS: PCP Internal Medicine; Visit Provider Specialist
DX: R41.0 Disorientation, unspecified (principal); Z85.3 Personal history of malignant neoplasm of breast; G47.33 Obstructive sleep apnea (adult) (pediatric)
CPT/HCPCS: 36415; 70553; 80048; 82607; 82746; 85651; 86038; A9576

== ENCOUNTER 2023-03-27 12:54 | Emergency (ER) | payer MEDICARE, MEDICAID, SELFPAY ==
[2023-03-27] VITALS (10 sets, daily range): BP systolic 108–130; BP diastolic 48–78; PULSE 77–93; RESP 11–17; TEMP 36.6–36.7; O2SAT 93–99; BMI 30.9
--- NOTE | 2023-03-27 13:18 | PC.NURSE ---
Poison control contacted. Spoke to Elli who recommended 4 hours OBS minimum. Monitor EKG for QTC prolongation. Checked CMP, Magnesium, Tylenol and Aspirin levels. Attending notified
--- NOTE | 2023-03-27 13:23 | ECG_ITS ---
APPROVED REPORT Exam: Resting ECG HR:86 bpm ECG Measurements Heart Rate 86 AXES AR 190 P 26 QRSd 93 QRS -6 QT 383 T 5 QTc 426 Conclusion SINUS RHYTHM LOW QRS VOLTAGE IN PRECORDIAL LEADS [QRS DEFLECTION < 1.0 mV IN CHEST LEADS] PATTERN CONSISTENT WITH PULMONARY DISEASE ABNORMAL ECG UNCONFIRMED REPORT Electronically signed by : Blake Hatch MD 03/28/2023 21:45:45
--- NOTE | 2023-03-27 13:24 | HMH.EDGENADL ---
Discharge Plan Disposition Patient Disposition: Home, Self-Care Condition: Good Prescriptions Prescriptions: No Action Calcium 600 with Vitamin D3 600 mg-10 mcg (400 unit) tablet,chewable See Rx Instructions PO .COMPLEX Rx Instructions: one tab every day orally; ascorbate calcium (vitamin C) 500 mg tablet 500 mg PO DAILY doxepin 50 mg Capsule 50 mg PO HS PRN (Reason: Insomnia) duloxetine 30 mg Capsule,Delayed Release(Dr/Ec) 30 mg PO DAILY pantoprazole 20 mg Tablet,Delayed Release (Dr/Ec) 20 mg PO DAILY diltiazem HCl 120 mg Capsule,Extended Release 24 Hr 120 mg PO DAILY montelukast 10 mg Tablet 10 mg PO DAILY aspirin 81 mg tablet,delayed release (DR/EC) 81 mg PO DAILY levothyroxine [Synthroid] 100 mcg tablet 100 mcg PO AM Referrals Follow up/Referrals: Connor Pandya MD [Primary Care Provider] - See instructions Activity Restrictions/Add. Instructions Additional Instructions/Restrictions: You were evaluated in the emergency department today. Please take your prescriptions at home as prescribed. Do not take extra doses. Follow-up outpatient closely with your primary care provider. Return to the emergency department for any new or worsening symptoms. Clinical Impressions Clinical Impression: Accidental overdose of trazodone Instructions Patient Instructions: DI for Anxiety -- Adult, DI for Drug Overdose in Adults Discharge ED Provider: Lashell Solis General Adult HPI General Chief complaint: Anxiety Stated complaint: took too much medication Time Seen by Provider: 03/27/23 13:03 Mode of Arrival: EMS Source of Information: Patient and EMS Limitations: No Limitations Description of Symptoms (Recalled from ER Triage Doc. by RN): 67 F presents via EMS from home after taking 7-8 of her Trazadone 50 mg for increased anxiety. Patient has history of anxiety, depression, schizophrenia to which she is medicated for. However, the Trazadone pills she took today were leftover from January 2022. Patient denies wanting to hurt herself or anyone else. She is very concerned about the anxiety she is experiencing. History of Present Illness HPI narrative: This patient is a 67-year-old female with a history of schizophrenia, depression, ZONIA, hypothyroidism, and obesity presenting to the emergency department for evaluation with concern that she took too much trazodone. The patient reports that she has been feeling anxious for a while now because she has a lot of insoluble problems and not much support. She states that she had some trazodone at home, so she took 8 to 10 tablets (she believes they were 50mg)at 1140am trying to get herself to calm down. She denies any intent on hurting herself. She denies any suicidal ideation, homicidal ideation, hallucinations, or other concerns. She states that she is currently feeling sort of queasy, but she denies any other physical concerns or complaints at this time. Related Data Home Medications Medication Instructions Recorded Confirmed diltiazem HCl 120 mg capsule,24 120 mg PO DAILY Heart rhythm 01/15/23 03/27/23 hr,extended release doxepin 50 mg capsule 50 mg PO HS PRN Insomnia 01/15/23 03/27/23 duloxetine 30 mg capsule,delayed 30 mg PO DAILY Mood 01/15/23 03/27/23 release montelukast 10 mg tablet 10 mg PO DAILY Allergy symptoms 01/15/23 03/27/23 pantoprazole 20 mg tablet,delayed 20 mg PO DAILY Acid reflux 01/15/23 03/27/23 release ascorbate calcium (vitamin C) 500 500 mg PO DAILY Supplement 03/08/23 03/27/23 mg tablet calcium carbonate 600 mg-vitamin See Rx Instructions PO .COMPLEX 03/08/23 03/27/23 D3 10 mcg (400 unit) chewable Supplement tablet (Calcium 600 with Vitamin D3) aspirin 81 mg tablet,delayed 81 mg PO DAILY Heart health 03/27/23 03/27/23 release levothyroxine 100 mcg tablet 100 mcg PO AM Thryoid 03/27/23 03/27/23 (Synthroid) Allergies Allergy/AdvReac Type Severity
[2023-03-27 13:37] LABS: Basophils # 0.1 K/mm3 (0-0.2); Basophils % 0.9 % (0.1-2.0); Eosinophils # 0.2 K/mm3 (0.0-0.4); Eosinophils % 3.5 % (0.1-12.0); Hematocrit 40.6 % (37.0-47.0); Hemoglobin 13.5 g/dL (12.2-16.2); Lymphocytes # 2.1 K/mm3 (0.7-4.5); Lymphocytes % 32.7 % (10-50); Mean Corpuscular HGB Conc 33.2 g/dL (31.8-35.4); Mean Corpuscular Hemoglobin 30.4 pg (27.0-31.2); Mean Corpuscular Volume 91.7 fl (81-99); Mean Platelet Volume 7.2 fl (7.4-10.4); Monocytes # 0.5 K/mm3 (0.1-1.0); Monocytes % 6.9 % (1.7-9.3); Neutrophils # 3.7 K/mm3 (1.8-7.8); Platelet Count 393 K/mm3 (142-424); Red Blood Count 4.43 M/mm3 (4.20-5.40); Red Cell Distribution Width 12.8 % (11.5-17.5); White Blood Count 6.5 K/mm3 (4.8-10.8)
[2023-03-27 13:40] LABS: VBG Base Excess -2.6 mmol/L (-2.4-2.3); VBG HCO3 23.5 mmol/L (23-30); VBG Oxygen Saturation 64.9 % (50-70); VBG PCO2 46.7 mmol/L (35-51); VBG PH 7.32 mmol/L (7.31-7.41); VBG Total CO2 24.9 mmol/L (23-27)
[2023-03-27 13:41] LABS: Chloride 98 mmol/L (98-107); Potassium 4.1 mmoL/L (3.5-5.1); Sodium 142 mmol/L (136-145)
[2023-03-27 13:43] LABS: Alanine Aminotransferase 40 U/L (12-78); Aspartate Amino Transferase 40 U/L (14-36); Blood Urea Nitrogen 27 mg/dl (7-17); Creatinine Clearance Estimated 71 mL/min (50-200); Estimated Glomerular Filt Rate 63 ml/min (>60); GFR (African American) 76 ML/MIN (>60)
[2023-03-27 13:44] LABS: Acetaminophen < 10 ug/ml (10-30); Albumin Level 4.2 g/dl (3.5-5.0); Albumin/Globulin Ratio 1.3 (1.1-1.8); Alkaline Phosphatase 102 U/L (38-126); Anion Gap 17.1 mEq/L (5-15); Bilirubin,Total 0.3 mg/dl (0.2-1.3); Calcium 9.7 mg/dl (8.4-10.2); Carbon Dioxide 31 mmol/L (22.0-30.0); Globulin 3.2 g/dL (1.3-3.2); Glucose 146 mg/dl (74-100); Magnesium 2.1 mg/dl (1.6-2.3); Salicylate < 1.0 mg/dL (2.0-20.0); Total Protein,Serum 7.4 g/dl (6.3-8.2)
[2023-03-27 14:04] LABS: Free T4 (Free Thyroxine) 1.37 ng/dl (0.78-2.19)
[2023-03-27 14:15] LABS: Thyroid Stimulating Hormone 0.13 uIU/mL (0.465-4.68)
--- NOTE | 2023-03-27 14:47 | PC.NURSE ---
pt just used bedside commode to pee.
--- NOTE | 2023-03-27 15:37 | PC.NURSE ---
patient assisted to rossi mccormick
--- NOTE | 2023-03-27 15:47 | PC.NURSE ---
Spoke with poison control regarding an update of patient status.
--- NOTE | 2023-03-27 16:18 | PC.NURSE ---
ATTEMPTED TO REACH CONTACT, MESSAGE LEFT
--- NOTE | 2023-03-27 17:17 | PC.NURSE ---
Got a call from Tika saying she wasnt coming to get Norah because she didnt have the gas money. I called Olivia and got no answer but I left a voicemail for her to call us back.
== END 2023-03-27 18:05 | disposition home or self-care (01) ==
PROVIDERS: Emergency Provider Emergency Medicine; PCP Internal Medicine
DX: T43.221A Poisoning by selective serotonin reuptake inhibitors, accidental (unintentional), initial encounter (principal)
CPT/HCPCS: 80053; 80329; 82803; 83735; 84439; 84443; 85025; 93005; 96361; 96374; 99285; J2405